=== PATIENT | female | born 1985 | race Caucasian/White ===

== ENCOUNTER 2020-02-10 13:00 | Emergency (ER) | payer OTHER, SELFPAY ==
[2020-02-10 13:28] VITALS: BP 114/91; PULSE 86; RESP 20; TEMP 36.8; O2SAT 97
--- NOTE | 2020-02-10 13:55 | PC.NURSE ---
Pt name called to room assignment, no answer. Intake desk states pt and kids when outside to see other kids.
--- NOTE | 2020-02-10 14:04 | PC.NURSE ---
Mother who is a patient as well as her 2 children seen leaving the parking lot, then returned to the parking lot and then seen leaving again.
== END 2020-02-10 13:58 | disposition left against medical advice (07) ==
PROVIDERS: Emergency Provider Emergency Medicine; PCP Physician Assistant
DX: R05 Cough (principal)
CPT/HCPCS: 99199

== ENCOUNTER 2024-10-31 15:06 | Outpatient (CLI) | payer OTHER, SELFPAY ==
--- NOTE | ~2024-10-31 | MM_ITS ---
EXAMINATION: MM screening rosario BI w sadi HISTORY: Screening TECHNIQUE: Craniocaudal and mediolateral oblique 3-D tomosynthesis images were obtained and synthetic 2-D images were generated. CAD analysis was submitted and interpreted. COMPARISON: No prior mammogram is available for comparison at this institution. BREAST PARENCHYMAL COMPOSITION: Dense: The breasts are heterogeneously dense, which may obscure small masses FINDINGS: There is a small low-density mass in the right breast at approximately the 9:00 position, m iddle third. There is no suspicious mass, calcification or architectural distortion in the left breas t to suggest malignancy. IMPRESSION: 1. Small low-density mass right breast at approximately 9:00, middle third. 2. Additional mammographic views and possible breast ultrasound are recommended. BI-RADS Category 0: Incomplete: Needs additional imaging evaluation. Reviewed, dictated and finalized at location A. IMPRESSION: 1. Small low-density mass right breast at approximately 9:00, middle third. 2. Additional mammographic views and possible breast ultrasound are recommended . BI-RADS Category 0: Incomplete: Needs additional imaging evaluation.
== END 2024-10-31 15:07 | disposition home or self-care (01) ==
LOC: ANHIMG 15:08
PROVIDERS: PCP Internal Medicine; Visit Provider Obstetrics & Gynecology
DX: Z12.31 Encounter for screening mammogram for malignant neoplasm of breast (principal); R92.8 Other abnormal and inconclusive findings on diagnostic imaging of breast
CPT/HCPCS: 77063; 77067

== ENCOUNTER 2024-11-25 13:04 | Outpatient (CLI) | payer OTHER, SELFPAY ==
--- NOTE | ~2024-11-25 | MMUS_ITS ---
EXAMINATION: MM diagnostic rosario RT w sadi, US breast RT complete HISTORY: Follow-up right breast mass TECHNIQUE: Additional 3-D tomosynthesis images of the right breast were performed and synthetic 2-D i mages were generated. CAD analysis was submitted and interpreted. High resolution complete right luis e st ultrasound was performed. COMPARISON: 10/31/2024 BREAST PARENCHYMAL COMPOSITION: Dense: The breasts are heterogeneously dense, which may obscure small masses FINDINGS: MAMMOGRAPHIC FINDINGS: There is a small low-density mass laterally in the right breast on CC view, middle third. There are n o suspicious calcifications ULTRASOUND: Complete US of all 4 quadrants of the right breast/s and retroareolar region was reviewed. At 7:00, 5 cm from the nipple there is a 7 mm cyst. At 9:00, 4 cm from the nipple there is a 1 cm cyst. At 9:00 , 1 cm from the nipple there is a 5 mm cyst. The mammographic finding likely corresponds to one of th e cysts. No suspicious sonographic abnormalities to suggest malignancy. IMPRESSION: 1. No evidence for malignancy in the right breast. Benign findings. 2. Routine yearly screening mammogram and regular clinical breast examination are recommended. BI-RADS Category 2: Benign finding(s). Reviewed, dictated and finalized at location B. IMPRESSION: 1. No evidence for malignancy in the right breast. Benign findings. 2. Routine yearly screening mammogram and regular clinical breast examination a re recommended. BI-RADS Category 2: Benign finding(s).
--- OUTSIDE RECORDS SUMMARY | 2024-11-25 13:12 | XMS_ITS | Patient Health Record ---
Author Organization [facility] Address [address] [place] [address] Care Team Providers Care Drag Seiner Name Role Phone Cesar Bose Primary Care Provider [phone] Rui Cassidy Unavailable [phone] Taye Caraballo Unavailable [phone] Corrina Garcia Unavailable [phone] Sarina Whiteside Unavailable [phone] Negin Rahman Unavailable [phone] Allergies Allergen (clinical drug ingredient) Drug/Non Drug Allergy documented on EMR Reaction Allergy Type Onset Date Status Strawberries Unknown Allergy Active Results Component Value Reference Range Notes 12 Panel Urine Drug Screen Reviewed date:02/13/2024 02:31:10 PM Interpretation: Performing Lab: Notes/Report: THC POS OSORIO neg MOP (OPI) neg AMP neg MET neg BAR neg BZO neg MDMA neg MTD neg OXY neg PCP neg BUP POS Vitamin B12 and Folate Reviewed date:03/11/2024 01:28:59 PM Interpretation: Performing Lab:[facility], [address] [facility], Phone - [phone], Director - [facility] Notes/Report: Vitamin B12 519 831-5048 pg/mL Folate (Folic Acid), Serum 5.6 >3.0 ng/mL A serum folate concentration of less than 3.1 ng/mL is considered to represent clinical deficiency. TSH Rfx on Abnormal to Free T4 Reviewed date:03/11/2024 01:28:59 PM Interpretation: Performing Lab:[facility], [address] [facility], Phone - [phone], Director - [facility] Notes/Report: TSH 32.000 0.450-4.500 uIU/mL T4,Free (Direct) 0.82 0.82-1.77 ng/dL CMP 14 Comprehensive Metabol ic Panel* Reviewed date:03/11/2024 01:28:59 PM Interpretation: Performing Lab:[facility], [address] [place] [address], Phone - [phone], Director - [facility] Notes/Report: Glucose 74 70-99 mg/dL BUN 11 6-24 mg/dL Creatinine 0.89 0.57-1.00 mg/dL eGFR 84 >59 mL/min/1.73 BUN/Creatinine Ratio 12 9-23 Sodium 139 134-144 mmol/L Potassium 3.9 3.5-5.2 mmol/L Chloride 102 96-106 mmol/L Carbon Dioxide, Total 23 20-29 mmol/L Calcium 9.1 8.7-10.2 mg/dL Protein, Total 7.2 6.0-8.5 g/dL Albumin 4.3 3.9-4.9 g/dL Globulin, Total 2.9 1.5-4.5 g/dL Bilirubin, Total 0.7 0.0-1.2 mg/dL Alkaline Phosphatase 50 44-121 IU/L AST (SGOT) 16 0-40 IU/L ALT (SGPT) 8 0-32 IU/L 12 Panel Urine Drug Screen Reviewed date:12/12/2023 01:44:03 PM Interpretation: Performing Lab: Notes/Report: THC POS OSORIO neg MOP (OPI) neg AMP neg MET neg BAR neg BZO neg MDMA neg MTD neg OXY neg PCP neg BUP POS TSH Rfx on Abnormal to Free T4 Reviewed date:03/11/2024 01:28:59 PM Interpretation: Performing Lab:[address], Phone - [phone], Director - [facility] Notes/Report: TSH 23.600 0.450-4.500 uIU/mL T4,Free (Direct) 0.83 0.82-1.77 ng/dL TSH Rfx on Abnormal to Free T4 Reviewed date:11/19/2024 02:57:03 PM Interpretation: Performing Lab:[address], Phone - [phone], Director - [facility] Notes/Report: TSH 27.400 0.450-4.500 uIU/mL T4,Free (Direct) 0.92 0.82-1.77 ng/dL CMP 14 Comprehensive Metabol ic Panel* Reviewed date:11/19/2024 02:57:03 PM Interpretation: Performing Lab:[facility], [address] [place] [address], Phone - [phone], Director - [facility] Notes/Report: Glucose 86 70-99 mg/dL BUN 8 6-24 mg/dL Creatinine 0.86 0.57-1.00 mg/dL eGFR 87 >59 mL/min/1.73 BUN/Creatinine Ratio 9 9-23 Sodium 140 134-144 mmol/L Potassium 4.3 3.5-5.2 mmol/L Chloride 104 96-106 mmol/L Carbon Dioxide, Total 23 20-29 mmol/L Calcium 9.0 8.7-10.2 mg/dL Protein, Total 6.8 6.0-8.5 g/dL Albumin 4.1 3.9-4.9 g/dL Globulin, Total 2.7 1.5-4.5 g/dL Bilirubin, Total 1.2 0.0-1.2 mg/dL Alkaline Phosphatase 50 44-121 IU/L AST (SGOT) 15 0-40 IU/L ALT (SGPT) 12 0-32 IU/L CBC With Differential/Platel et* Reviewed date:11/19/2024 02:57:03 PM Interpretation: Performing Lab:[facility], [address], Phone - [phone], Director - [facility] Notes/Report: WBC 5.4 3.4-10.8 x10E3/uL RBC 4.39 3.77-5.28 x10E6/uL Hemoglobin 13.1 11.1-15.9 g/dL Hematocrit 42.2 34.0-46.6 % MCV 96 79-97 fL MCH 29.8 26.6-33.0 pg MCHC 31.0 31.5-35.7 g/dL RDW 12.0 11.7-15.4 % Platelets 262 150-450 x10E3/uL Neutrophils 43 Not Estab. % Lymphs 40 Not Estab. % Monocytes 7 Not Estab. % Eos 8 Not Estab. % Basos 2 Not Estab. % Neutrophils (Absolute) 2.3 1.4-7.0 x10E3/uL Lymphs (Absolute) 2.2 0.7-3.1 x10E3/uL Monocytes(Absolute) 0.4 0.1-0.9 x10E3/uL Eos (Absolute) 0.4 0.0-0.4 x10E3/uL Baso (Absolute) 0.1 0.0-0.2 x10E3/uL Immature Granulocytes 0 Not Estab. % Immature Grans (Abs) 0.0 0.0-0.1 x10E3/uL 12 Panel Urine Drug Screen Reviewed date:08/18/2024 09:27:07 AM Interpretation: Performing Lab: Notes/Report: THC POS OSORIO neg MOP (OPI) neg AMP neg MET neg BAR neg BZO neg MDMA neg MTD neg OXY POS PCP neg BUP POS 12 Panel Urine Drug Screen Reviewed date:07/17/2024 11:30:45 AM Interpretation: Performing Lab: Notes/Report: THC POS OSORIO neg MOP (OPI) neg AMP neg MET neg BAR neg BZO neg MDMA neg MTD neg OXY neg PCP neg BUP POS 12 Panel Urine Drug Screen Reviewed date:04/18/2024 09:11:42 AM Interpretation: Performing Lab: Notes/Report: THC POS OSORIO neg MOP (OPI) neg AMP neg MET neg BAR neg BZO neg MDMA neg MTD neg OXY neg PCP neg BUP POS 12 Panel Urine Drug Screen Reviewed date:03/18/2024 03:00:48 PM Interpretation: Performing Lab: Notes/Report: THC POS OSORIO neg MOP (OPI) neg AMP neg MET neg BAR neg BZO neg MDMA neg MTD neg OXY neg PCP neg BUP POS 12 Panel Urine Drug Screen Reviewed date:06/18/2024 01:35:46 PM Interpretation: Performing Lab: Notes/Report: THC POS OSORIO NEG MOP (OPI) NEG AMP NEG MET NEG BAR NEG BZO NEG MDMA NEG MTD NEG OXY NEG PCP NEG BUP POS 14 Panel Urine Drug Screen Reviewed date:10/15/2024 03:27:13 PM Interpretation: Performing Lab: Notes/Report: THC POS OSORIO neg MOP (OPI) neg AMP neg MET neg BAR neg BZO neg MDMA neg MTD neg OXY neg PCP neg BUP POS TCA neg FTY neg 14 Panel Urine Drug Screen Reviewed date:11/13/2024 02:17:21 PM Interpretation: Performing Lab: Notes/Report: THC POS OSORIO neg MOP (OPI) neg AMP neg MET neg BAR neg BZO neg MDMA neg MTD neg OXY neg PCP neg BUP POS TCA neg FTY neg 12 Panel Urine Drug Screen Reviewed date:01/16/2024 02:51:37 PM Interpretation: Performing Lab: Notes/Report: THC POS OSORIO neg MOP (OPI) neg AMP neg MET neg BAR neg BZO neg MDMA neg MTD neg OXY neg PCP neg BUP POS Buprenorphine and Metabolite (Urine test) Reviewed date:06/23/2024 10:57:09 AM Interpretation: Performing Lab:[facility], [address] [employer], [place], Phone - [phone], Director - [facility] Notes/Report: Clinical Information:CCU:[id number] LM Buprenorphine Positive Confirmation p erformed by Mass Spectrometry Buprenorphine Positive Buprenorphine Conf, MS, UR 207 Cutoff=10 ng/m L Norbuprenorphine Positive Norbuprenorphine Conf, MS, UR 1848 Cutoff=10 n g/mL 12 Panel Urine Drug Screen Reviewed date:09/15/2024 09:32:50 AM Interpretation: Performing Lab: Notes/Report: THC POS OSORIO neg MOP (OPI) neg AMP neg MET neg BAR neg BZO neg MDMA neg MTD neg OXY neg PCP neg BUP POS Reason For Referral Reason depression, stress d ue to family dysfunction Diagnosis 1 Recurrent major depr essive disorder, in partial remission (F33.41) Referral Organization [facility] Referring Provider First Name Sarina Referring Provider Last Name Marisel marie Referring Provider Speciality [facility] counseling Referred Provider Specialty Behavioral H ealt General Notes Another transfer, ti oakes has appointment with Dr. Bose on 09/03/24 at 8:20 if you have time to speak with her!, I know her personally outside of work from a group that we both attend. I am not sure I would be the best HN to address this issue. If you think it would be helpful since I know her, I will give attempt it. Clinical Notes Zoe Whiteside 09/09/2024 09:50:22 AM > Cream Beater called and left voicemail message, Sarina Whiteside 09/12/2024 10:37:55 AM > For Agueda braun Molly B 09/15/2024 03:21:58 PM >Assigned to Sumi for six sessions of brief intervention, Rajendra Mcnairisis Mills 09/22/2024 01:50:41 PM >Call to client, no answer. Sent text message., Xu Sumi Mills 09/29/2024 12:48:49 PM >Call to client, no answer., Sarina Whiteside 10/21/2024 11:39:28 AM > Client is scheduled with client. Referral Priority Routine Medications Medication SIG (Take, Route, Frequency, Duration) Notes Start Date End Date Status Levothyroxine Sodium 150 MCG 1 tablet in the morning on an empty stomach Orally Once a day; Duration: 30 days Active Suboxone 8-2 MG 1 film under the ton catherine and allow to dissolve Sublingual three times daily; Duration: 30 days 11/13/2024 Active Cyanocobalamin 1000 MCG/ML 1 mL Injectio n EVERY 4 WEEKS Active Fluticasone Propionate 50 MCG/ACT 2 SPRAYS DAILY EACH NOSTRIL Nasally at night 01/03/2024 Active Famotidine 40 mg TAKE 1 TABLET BY ELAINA TH TWICE A DAY; Duration: 30 Active Nicotine Mini 4 MG 1 lozenge as needed Mouth/Throat every 1-2 hours; Duration: 30 days As needed for smoking cessation, up to 16 lozenges per day 01/16/2024 Active Naloxone HCl 8 MG/0.1ML 8 mg for opioid overdose Nasally as needed 09/29/2022 Active Triamcinolone Acetonide 0.1 % 1 application TO AFFECTED AREA ON SCALP Externally Twice a day Active Doxepin HCl 10 MG 1-2 capsule at bedti nh Orally Once a day; Duration: 30 days Active EpiPen 2-Eamon 0.3 MG/0.3ML 0.3 mg Injection once; Duration: 30 days As needed food allergy with anaphylaxis 06/23/2024 Active Enulose 10 GM/15ML TAKE 30ML BY MOUTH E VERY NIGHT; Duration: 30 days Active Acetaminophen 500 MG two tablets as need ed for pain (maximum of 6 tablets in 24 hours) Orally every 6 hrs Active Immunizations Vaccine Route Administration Date Status Comme nts FLU VAC NO PRSV 4VAL 6 mo+ IM Intramuscular 02/22/2023 Adm inistered Social History Tobacco Use: Social History Observation Description Date Details (start date - stop date) Current Smoker NA - NA Sex Assigned At : Social History Observation Description Sex Assigned At Female PRAPARE Question Answer Notes Date Completed/Updated: 11/12/2023 PRAPARE Score: 2 Tobacco Control (Standard) Question Answer Notes Tobacco use: Current every day smoker Additional Findings: Tobacco user Light cigarett e smoker (1-9 cigs/day) Problems Problem Type SNOMED Code ICD Code Onset Dates Problem Status W/U Status Risk Notes Problem Tobacco user (949552549) Nicotine dependence, unspecified, uncomplicated (F17.200) Active confirmed Problem Gastroesophageal reflux disease (214974260) GERD (gastroesophagea l reflux disease) (K21.9) Active confirmed Problem Hypothyroid (12252706) Hypothyroid (E03.9) Active confirmed Problem Posttraumatic stress disorder (70536390) PTSD (post-traumatic stress disorder) (F43.10) Active confirmed Problem Anxiety (56025218) Anxiety (F41.9) Active confi rmed Problem Chronic pain (15058906) Chronic pain (G89.29) Active confirmed Problem Chronic constipation (680442581) Chronic constipation (K59.00) Active confirmed Problem Chronic alcoholism in remission (952572511) Alcohol dependence in remission (F10.21) Active confirmed Problem Bipolar 2 disorder (55526723) Bipolar 2 disorder (F31.81) Active confirmed Problem Overweight (011524672) Over weight (E66.3) Active confirmed Problem Chronic fatigue syndrome (54755179) Chronic fatigue (R53.82) Active confirmed Problem Recurrent major depression in remission (49819957) Recurrent major depressive disorder, in partial remission (F33.41) Active confirmed Problem Alcohol abuse (56740803) AA (alcohol abuse) (F10.10) Active confirmed Problem Irritable bowel syndrome characterized by constipation (380952769) Irritable bowel syndrome with constipation (K58.1) 11/04/19 Active confirmed Problem Chronic rhinitis (35337616) Rhinitis, unspecified type (J31.0) Active confirmed Problem Alopecia areata (35486674) Alopecia areata (L63.9) Active confirmed Problem Tobacco use (040648795) Tobacco use disorder (F17.200) Active confirmed Problem Food allergy (332617005) Food allergy (Z91.018) Active confirmed Problem Opioid use disorder (2626996369) Opioid use disorder (F11.99) Active confirmed Problem Pain in limb (79528293) Left thigh pain (M79.652) Active confirmed Problem Alcohol related disorder (F10.99) Active confirmed Vital Signs Heart Rate 76 /min 11/13/2024 Temperature 98.3 degrees Fahrenheit 09/15/2024 Respiratory Rate 16 /min 11/13/2024 Oximetry 98 % 11/13/2024 Blood pressure diastolic 80 mm Hg 11/13/2024 Height 65 in 11/13/2024 Blood pressure systolic 102 mm Hg 11/13/2024 Weight 153.8 lbs 11/13/2024 BMI 25.59 kg/m2 11/13/2024 Encounters Encounter Location Date Provider Diagnosis [address] [place] [address] 01/03/[address] [address] 05/20/2024 Cesar Bose Opioid use disorder F11.[address] [address] 10/30/2024 Cesar [address] [address] [place] [address] 11/12/2024 Cesar Bose [address] [place] [address] 01/03/2024 Cesar Bose [address] [place] [address] 02/13/2024 Cesar Bose [address] [place] [address] 01/03/2024 Cesar Bose Acute sinusitis J01.90 ; Rhinitis, unspecified type J31.0 ; Headache around the eyes R51.9 ; Hypothyroid E03.9 and Nicotine dependence, unspecified, uncomplicated F17.[address] [place] [address] 03/18/2024 Cesar Bose Opioid use disorder F11.99 and Hypothyroid E03.[address] [address] 02/13/2024 Cesarlizbet Bose Opioid use disorder F11.99 ; Hypothyroid E03.9 ; Vitamin B 12 deficiency E53.8 and Encounter for immunization Z23 [address] [address] 06/23/2024 Cesarlizbet Bose Food allergy Z91.018 ; Opioid use disorder F11.99 ; Rhinitis, unspecified type J31.0 ; Hypothyroid E03.9 and Left thigh pain M79.[address] [address] 11/13/2024 Cesar Bose Opioid use disorder F11.99 and Hypothyroid E03.[address] [address] 07/17/2024 Cesarlizbet Bose Opioid use disorder F11.[address] [address] 08/18/2024 Cesarlizbet Bose Opioid use disorder F11.99 and Recurrent major depressive disorder, in partial remission F33.[address] [address] 05/20/2024 Cesar Bose Nicotine dependence, unspecified, uncomplicated F17.200 and Opioid use disorder F11.[address] [address] 06/18/2024 Corrina Garcia Opioid use disorder F11.[address] [address] 09/15/2024 Corrina Choudhuryfiniles Opioid use disorder F11.99 and Over weight E66.3 [facility] [address] [place] [address] 10/15/2024 Taye Caraballo Opioid use disorder F11.99 ; Over weight E66.3 and Nicotine dependence, unspecified, uncomplicated F17.[address] [place] [address] 04/18/2024 Taye Caraballo Opioid use disorder F11.99 ; Overweight (BMI 25.0-29.9) E66.3 and Tobacco use disorder F17.[address] [place] [address] 01/16/2024 Corrina Jose Opioid use disorder F11.99 ; Nicotine dependence, unspecified, uncomplicated F17.200 ; Overweight (BMI 25.0-29.9) E66.3 and Nutritional counseling Z71.[address] [address] 12/12/2023 Corrina Choudhuryfiniles Opioid use disorder F11.99 ; Nicotine dependence, unspecified, uncomplicated F17.200 ; Dietary counseling Z71.3 and Overweight (BMI 25.0-29.9) E66.3 Assessments Encounter Date Diagnosis (ICD Code) Assessment Notes Treatment Notes Treatment Clinical Notes Section Notes 06/23/2024 Food allergy (ICD-10 - Z91.018) 06/23/2024 Opioid use disorder (ICD-10 - F11.99) 02/13/2024 Hypothyroid (ICD-10 - E03.9) TSH RECENTLY TRENDING DOWN. REVIEWED PROPER DOSING. 02/13/2024 Opioid use disorder (ICD-10 - F11.99) 03/18/2024 Hypothyroid (ICD-10 - E03.9) INCREASE LT4 FROM 125 TO 150 MCG DAILY. 03/18/2024 Opioid use disorder (ICD-10 - F11.99) 05/20/2024 Nicotine dependence, unspecified, uncomplicated (ICD-10 - F17.200) 05/20/2024 Opioid use disorder (ICD-10 - F11.99) 06/18/2024 Opioid use disorder (ICD-10 - F11.99) 08/18/2024 Recurrent major depressive disorder, in partial remission (ICD-10 - F33.41) 08/18/2024 Opioid use disorder (ICD-10 - F11.99) 09/15/2024 Over weight (ICD-10 - E66.3) 09/15/2024 Opioid use disorder (ICD-10 - F11.99) 10/15/2024 Over weight (ICD-10 - E66.3) 10/15/2024 Opioid use disorder (ICD-10 - F11.99) 11/13/2024 Hypothyroid (ICD-10 - E03.9) 11/13/2024 Opioid use disorder (ICD-10 - F11.99) 12/12/2023 Nicotine dependence, unspecified, uncomplicated (ICD-10 - F17.200) 12/12/2023 Opioid use disorder (ICD-10 - F11.99) 01/03/2024 Acute sinusitis (ICD-10 - J01.90) 01/03/2024 Rhinitis, unspecified type (ICD-10 - J31.0) 07/17/2024 Opioid use disorder (ICD-10 - F11.99) 05/20/2024 Opioid use disorder (ICD-10 - F11.99) 04/18/2024 Overweight (BMI 25.0-29.9) (ICD-10 - E66.3) 04/18/2024 Opioid use disorder (ICD-10 - F11.99) 01/16/2024 Nicotine dependence, unspecified, uncomplicated (ICD-10 - F17.200) 01/16/2024 Opioid use disorder (ICD-10 - F11.99) 01/16/2024 Overweight (BMI 25.0-29.9) (ICD-10 - E66.3) 04/18/2024 Tobacco use disorder (ICD-10 - F17.200) 06/23/2024 Rhinitis, unspecified type (ICD-10 - J31.0) 01/03/2024 Headache around the eyes (ICD-10 - R51.9) TENSION VS SINUS CALL IF NOT IMPROVING WITH TREATMENT OF SINUS ISSUES 12/12/2023 Dietary counseling (ICD-10 - Z71.3) 10/15/2024 Nicotine dependence, unspecified, uncomplicated (ICD-10 - F17.200) 02/13/2024 Vitamin B 12 deficiency (ICD-10 - E53.8) GIVES MONTHLY INJECTIONS AT HOME AND TAKES MVI W/ FOLIC ACID AND VIT D IN IT. 06/23/2024 Hypothyroid (ICD-10 - E03.9) 12/12/2023 Overweight (BMI 25.0-29.9) (ICD-10 - E66.3) 02/13/2024 Encounter for immunization (ICD-10 - Z23) Ordered per standing orders for administering influenza vaccine to adults. 01/03/2024 Hypothyroid (ICD-10 - E03.9) 01/16/2024 Nutritional counseling (ICD-10 - Z71.3) 01/03/2024 Nicotine dependence, unspecified, uncomplicated (ICD-10 - F17.200) DECLINED NRT, HAS ALMOST QUIT 06/23/2024 Left thigh pain (ICD-10 - M79.652) 12/12/2023 Other Client agrees to take medication as prescribed. Discussed medication side effects, adverse effects, risks, benefits, as well as interactions. Encouraged non-use of opioids and other illicit substances. Has naloxone. Understand that discontinuing buprenorphine increases the risk of overdose upon return to illicit opioid use. Know that that use of alcohol or benzodiazepines with buprenorphine increases the risk of overdose and . Education provided about safe storage of medications. Encourage participation in recovery groups/counseling services. Patient understands that all treating providers/physicia ns should be informed of buprenorphine use as part of a Medication Assisted Recovery program. Contact office with questions or concerns. 01/03/2024 Other Learning About the Safe Use of Antibiotics material was discussed. Pt was educated on use of antibiotic medication including dosing, side effects, adverse effects and anticipated response. Pt was also educated on importance of completing full course of treatment as ordered. Patient voiced understanding of all. 01/16/2024 Other Client agrees to take medication as prescribed. Discussed medication side effects, adverse effects, risks, benefits, as well as interactions. Encouraged non-use of opioids and other illicit substances. Has naloxone. Understand that discontinuing buprenorphine increases the risk of overdose upon return to illicit opioid use. Know that that use of alcohol or benzodiazepines with buprenorphine increases the risk of overdose and . Education provided about safe storage of medications. Encourage participation in recovery groups/counseling services. Patient understands that all treating providers/physicia ns should be informed of buprenorphine use as part of a Medication Assisted Recovery program. Contact office with questions or concerns. 04/18/2024 Other Patient agrees to take medication as prescribed. Discussed medication side effects, adverse effects, risks, benefits, as well as interactions. Encouraged non-use of opioids. Has naloxone. Recommended participation in recovery groups and/or counseling services. May contact office with questions or concerns. 06/18/2024 Other Patient agrees to take medication as prescribed. Discussed medication side effects, adverse effects, risks, benefits, as well as interactions. Encouraged non-use of opioids and other illicit substances. Has naloxone. Discontinuing buprenorphine increases the risk of overdose upon return to illicit opioid use. Use of alcohol or benzodiazepines with buprenorphine increases the risk of overdose and . Education provided about safe storage of medications. Encouraged participation in recovery groups/counseling services. Contact office with questions or concerns. 09/15/2024 Other Patient agrees to take medication as prescribed. Discussed medication side effects, adverse effects, risks, benefits, as well as interactions. Encouraged non-use of opioids and other illicit substances. Has naloxone. Discontinuing buprenorphine increases the risk of overdose upon return to illicit opioid use. Use of alcohol or benzodiazepines with buprenorphine increases the risk of overdose and . Education provided about safe storage of medications. Encouraged participation in recovery groups/counseling services. Contact office with questions or concerns. Patient may self-administer their own medications or may self-administer their own oral medications per [facility] Protocol. 10/15/2024 Other Patient agrees to take medication as prescribed. Discussed medication side effects, adverse effects, risks, benefits, as well as interactions. Encouraged non-use of opioids. Has naloxone. Recommended participation in recovery groups and/or counseling services. May contact office with questions or concerns. Patient may self-administer their own medications or may self-administer their own oral medications per [facility] Protocol. Plan Of Treatment No Information Insurance Providers Payer Name Payer Address Payer Phone Subscriber Number Group Number Insured Name Patient Relationship to Insured Coverage Start Date Coverage End Date [facility] Claims Department [address] [place] [address] [phone] [id number] Sonali Cesar Self - patient is the insured 4 Medical (General) History Surgical History Surgery Date(Month/Year) HEMORRHOIDECTOMY 2017 HYSTERECTOMY FOR UTERINE CANCER COLONOSCOPY 2017 Hospitalization History Reason Date(Month/Year)
--- OUTSIDE RECORDS SUMMARY | 2024-11-25 13:12 | XMS_ITS ---
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 Name Role Phone Cesar Bose Primary Care Provider [phone] Cassidy Fabian Unavailable [phone] Sarina Whiteside Unavailable REASON FOR VISIT Therapy (1 of 6) Social History Sex Assigned At : Social History Observation Description Sex Assigned At Female Encounters Encounter Location Date Provider Diagnosis [facility] [address], [place] [address] 10/28/2024 Sarina Whiteside Plan Of Treatment No Information Progress Notes * Homero CESAROB:1985 (39 yo F)Acc No.[id number]:10/28/2024 UNLOCKED PROGRESS NOTE Patient: Sonali VEGA Provider: Wes Whiteside :1985 A ge:39 Y S ex:Female Date:10/28/2024 Address:[address] [place], [place] [id number] Pcp:Cesar Bose Subjective: * Chief Complaints: * 1 . Therapy (1 of 6). * Medical History: Objective: * Vitals: Assessment: Plan: * Treatment: * * Electronic signature of Ronal Whiteside on 11/25/2024 at 01:12 PM CDT Sign off status: Pending * Provider: Wes Whiteside Date: 0 10/28/2024 Generated for Penny duong/Leonardo/Cristiansmitting on: 0 11/25/2024 01:12 PM CDT
== END 2024-11-25 13:05 | disposition home or self-care (01) ==
LOC: ANHIMG 13:05
PROVIDERS: PCP Internal Medicine; Visit Provider Obstetrics & Gynecology
DX: N63.10 Unspecified lump in the right breast, unspecified quadrant (principal)
CPT/HCPCS: 76641; 77061; 77065; G0279